=== PATIENT | male | born 1995 | race Caucasian/White ===

== ENCOUNTER 2022-01-19 11:11 | Emergency (ER) | payer OTHER, MEDICAID ==
[~2022-01-19] VITALS: Ht 170.2 cm; Wt 99.8 kg
[2022-01-19 11:15] VITALS: BP_SYST 160
--- NOTE | 2022-01-19 12:45 | NUR ---
Dr Cortez evaluating patient at bedside
[2022-01-19] MEDS ORDERED: GUAI5SYR PO (12:57)
[2022-01-19] MEDS ORDERED: ALBU8.5H8 INH (12:57)
[2022-01-19] MEDS ORDERED: IBUPROFEN 600 MG TABLET PO ONE (13:00)
--- NOTE | 2022-01-19 13:16 | NUR ---
Pt brought by self, A&Ox4, pt presents to ER with cough/ congestion and sore throat, pt afebrile, VSS, respirations even and unlabored, cap refill <3, will cont to monitor.
--- NOTE | 2022-01-19 15:42 | NUR ---
PT MOVED TO [facility], REPORT RECEIVED THAT PT IS AWAITING CLARIFICATION FROM HIS PHARMACY FOR MEDICATION RX. PT A&OX4, RESP EASY, MM PINK, NO APPARENT DISTRESS
--- NOTE | 2022-01-19 15:53 | NUR ---
Patient given written and verbal discharge instructions and verbalizes understanding. ER MD discussed with patient the results and treatment provided. Patient in stable condition. ID arm band removed. Rx of ALBUTEROL,GUIAFANESIN given. Patient educated on pain management and to follow up with PMD. Pain Scale . Opportunity for questions provided and answered. Medication side effect fact sheet provided.
[2022-01-19 15:54] VITALS: BP_SYST 142
== END 2022-01-19 15:53 | disposition home or self-care (01) ==
LOC: SED 11:11
DX: J20.8 Acute bronchitis due to other specified organisms (principal); R05.9 Cough, unspecified; R07.9 Chest pain, unspecified; Z79.899 Other long term (current) drug therapy; Z20.822 Contact with and (suspected) exposure to COVID-19
CPT/HCPCS: 36415; 71045; 99284

== ENCOUNTER 2022-12-28 15:33 | Emergency (ER) | payer OTHER, MEDICAID ==
[~2022-12-28] VITALS: Ht 175.3 cm; Wt 104.3 kg
[~2022-12-28 15:33] MED LIST: ALBU8.5H8 INH; GUAI5SYR PO
[2022-12-28 15:43] VITALS: BP_SYST 141; PULSE 99; RESP 14; TEMP 97.7; O2SAT 96
[2022-12-28 16:26] LABS: INFLUENZA TYPE A Negative (NEGATIVE); INFLUENZA TYPE B NEGATIVE (NEGATIVE)
[2022-12-28] MEDS ORDERED: DIPH25CA83 PO (16:39)
[2022-12-28] MEDS ORDERED: PSEU30TA36 PO (16:39)
[2022-12-28 16:50] VITALS: BP_SYST 148; PULSE 94; RESP 16; TEMP 98.3; O2SAT 97
== END 2022-12-28 16:50 | disposition home or self-care (01) ==
LOC: SED 15:33
DX: J40 Bronchitis, not specified as acute or chronic (principal); R07.81 Pleurodynia; Z79.899 Other long term (current) drug therapy; Z20.822 Contact with and (suspected) exposure to COVID-19
CPT/HCPCS: 36415; 71045; 93005; 99285

== ENCOUNTER 2023-07-14 18:45 | Emergency (ER) | payer OTHER, MEDICAID ==
[~2023-07-14] VITALS: Ht 172.7 cm; Wt 104.3 kg
[~2023-07-14 18:45] MED LIST changes: +DIPH25CA83 PO; +PSEU30TA36 PO
[2023-07-14 19:18] LABS: BASOPHILS % (AUTO) 0.3 % (0.0-2.0); EOSINOPHILS # (AUTO) 0.1 K/uL (0.0-0.4); EOSINOPHILS % (AUTO) 0.9 % (0.0-4.0); HEMATOCRIT 42.4 % (36-54); HEMOGLOBIN 14.3 g/dL (14.0-18.0); LYMPHOCYTES # (AUTO) 1.3 K/uL (1.0-5.5); LYMPHOCYTES % (AUTO) 10.2 % (20.5-51.5); MEAN CORPUSCULAR HEMOGLOBIN 26 pg (27-31); MEAN CORPUSCULAR HGB CONC 34 % (32-36); MEAN CORPUSCULAR VOLUME 76 fL (79.0-98.0); MONOCYTES % (AUTO) 7.6 % (1.7-9.3); NEUTROPHILS # (AUTO) 10.3 K/uL (1.8-7.7); PLATELET COUNT (AUTO) 267 K/uL (130-430); RED BLOOD CELL COUNT(AUTO) 5.56 MIL/uL (4.2-6.2); RED CELL DISTRIBUTION WIDTH 14.6 % (9.0-15.0); WHITE BLOOD COUNT (AUTO) 12.7 K/uL (4.8-10.8)
[2023-07-14 19:19] VITALS: PULSE 118; RESP 16; TEMP 98.7; O2SAT 96
[2023-07-14 19:21] LABS: ANION GAP 9 (5-15); CALCIUM 8.9 mg/dL (8.4-11.0); CARBON DIOXIDE 27 mmol/L (23-29); CHLORIDE 104 mmol/L (98-107); CREATININE 0.95 mg/dL (0.55-1.30); GFR AFRICAN AMERICAN 123 mL/min (>90); GLUCOSE 110 mg/dL (74-106); POTASSIUM 3.7 mmol/L (3.5-5.1); SODIUM SERUM 140 mmol/L (136-145); UREA NITROGEN, BLOOD 13 mg/dL (8-21)
[2023-07-14 19:22] LABS: GFR NON AFRICAN-AMERICAN 102 mL/min (>90)
[2023-07-14 19:35] LABS: ACETONE, SERUM NEGATIVE (NEGATIVE)
[2023-07-14 20:28] LABS: INFLUENZA TYPE B NEGATIVE (NEGATIVE)
[2023-07-14 20:34] LABS: INFLUENZA TYPE A Positive (NEGATIVE)
[2023-07-14] MEDS ORDERED: IBUP-1971 PO (20:39)
[2023-07-14] MEDS ORDERED: OSEL75CA PO (20:39)
[2023-07-14] MEDS: IBUPROFEN 800 MG TABLET PO ONE (20:57)
[2023-07-14 21:01] VITALS: BP_SYST 140; PULSE 105; RESP 16; TEMP 98.3; O2SAT 98
== END 2023-07-14 20:57 | disposition home or self-care (01) ==
LOC: SED 18:45
DX: J10.1 Influenza due to other identified influenza virus with other respiratory manifestations (principal); J40 Bronchitis, not specified as acute or chronic; R05.9 Cough, unspecified; R09.89 Other specified symptoms and signs involving the circulatory and respiratory systems; R07.9 Chest pain, unspecified; Z79.899 Other long term (current) drug therapy; Z20.822 Contact with and (suspected) exposure to COVID-19
CPT/HCPCS: 36415; 71045; 80048; 82009; 84484; 85025; 93005; 99285